=== PATIENT | female | born 1985 | race African-American/Black ===

== ENCOUNTER 2017-04-16 07:42 | Emergency (ER) | payer OTHER ==
[~2017-04-16] VITALS: Ht 165.1 cm; Wt 67.1 kg
[2017-04-16 07:45] VITALS: Ht 165.1 cm; Wt 67.1 kg
[2017-04-16 09:40] VITALS: BP 132/81
== END 2017-04-16 09:40 | disposition home or self-care (01) ==
LOC: ED 07:42
DX: M06.80 Other specified rheumatoid arthritis, unspecified site (principal); Z88.2 Allergy status to sulfonamides
CPT/HCPCS: J1885; J7512

== ENCOUNTER 2018-05-13 08:42 | Emergency (ER) | payer OTHER ==
[~2018-05-13] VITALS: Ht 162.6 cm; Wt 70.3 kg
[2018-05-13 08:50] VITALS: BP 149/98; Ht 162.6 cm; Wt 70.3 kg
== END 2018-05-13 10:08 | disposition home or self-care (01) ==
LOC: ED 08:42
DX: S93.402A Sprain of unspecified ligament of left ankle, initial encounter (principal); M06.9 Rheumatoid arthritis, unspecified; Z88.2 Allergy status to sulfonamides; Z90.89 Acquired absence of other organs; Z98.890 Other specified postprocedural states; W18.30XA Fall on same level, unspecified, initial encounter; Y93.23 Activity, snow (alpine) (downhill) skiing, snowboarding, sledding, tobogganing and snow tubing; Y92.89 Other specified places as the place of occurrence of the external cause; Y99.8 Other external cause status

== ENCOUNTER 2018-11-25 08:23 | Emergency (ER) | payer OTHER ==
[~2018-11-25] VITALS: Ht 160 cm; Wt 69.9 kg
[2018-11-25 08:28] VITALS: Ht 160 cm; Wt 69.9 kg
[2018-11-25 09:51] VITALS: BP 138/90
== END 2018-11-25 09:51 | disposition home or self-care (01) ==
LOC: ED 08:23
DX: R19.7 Diarrhea, unspecified (principal); R53.1 Weakness; R11.2 Nausea with vomiting, unspecified; R50.9 Fever, unspecified; R10.84 Generalized abdominal pain; M06.9 Rheumatoid arthritis, unspecified; Z90.89 Acquired absence of other organs; Z98.890 Other specified postprocedural states; Z88.2 Allergy status to sulfonamides